=== PATIENT | male | born 1945 | race Caucasian/White ===

== ENCOUNTER → 2019-01-05 | Outpatient (CLI) | payer MEDICARE, OTHER ==
[~2019-01-05] MED LIST: ATOR1TAB21 PO; BAYE325T13 PO; FLOM0.4C39 PO; GLIP2.5T6 PO; LISI-538 PO; METF500T13 PO; METO1TAB87 PO; NO ITAB PO; PURE500C5 PO
--- NOTE | 2019-01-05 17:58 | REP ---
Clinical: Preoperative assessment . Comparison: None . Technique: PA and lateral. Findings: Cardiac silhouette is normal. Evidence of prior sternotomy. The lung james are clear and without acute consolidation, effusion, or pneumothorax. The skeletal structures are intact and normal. Impression: 1. No acute cardiopulmonary process. Electronically Signed by Bony Schwartz MD 01/05/2019 05:50 P
[2019-01-05 18:26] LABS: POTASSIUM SERUM 4.8 MEQ/L (3.5-5.1)
[2019-01-05 18:34] LABS: HEMATOCRIT 38.3 % (42.0-52.0); HEMOGLOBIN 12.8 g/dl (13.5-17.5); MEAN CORPUSCULAR HEMOGLOBIN 29.9 pg (27.0-33.0); MEAN CORPUSCULAR HGB CONC 33.4 g/dl (32.0-36.5); MEAN CORPUSCULAR VOLUME 89.5 fl (80.0-96.0); PLATELET COUNT, AUTOMATED 273 10^3/uL (150-450); RED BLOOD COUNT 4.28 10^6/uL (4.30-6.10); WHITE BLOOD COUNT 10.9 10^3/uL (4.0-10.0)
[2019-01-05 18:48] LABS: INR 0.97; PROTHROMBIN TIME 12.6 SECONDS (11.8-14.0)
[2019-01-05 18:49] LABS: PARTIAL THROMBOPLASTIN TIME 30.9 SECONDS (25.0-38.4)
--- NOTE | 2019-01-06 13:27 | ECGEPIP ---
[facility] Test Date: 2019-01-05 Pat Name: JASON THOMPSON Department: Room: - Gender: Male Wireless Sales Expert: CHRISTAL : 1945 Requested By: LUCA EARL Order Number: [id number] Reading MD: Flaca Jackson Measurements Intervals [place] Rate: 78 P: MO: 133 QRS: 25 QRSD: 89 T: 48 QT: 362 QTc: 414 Interpretive Statements SINUS RHYTHM NO PRIOR Electronically Signed on 01-06-2019 13:27:07 EDT by Flaca Jackson
== END ==
LOC: M LAB 16:41
PROVIDERS: ATTEND Orthopaedic Surgery Sports Medicine
DX: Z79.01 Long term (current) use of anticoagulants (principal); M25.869 Other specified joint disorders, unspecified knee

== ENCOUNTER 2019-01-11 09:58 | Day surgery (SDC) | payer MEDICARE, OTHER ==
[~2019-01-11] VITALS: Ht 170.2 cm; Wt 76.2 kg
[2019-01-11] MEDS ORDERED: fentaNYL 100 MCG/2 ML INJECTION (J3010) As Ordered ONE ×2 (12:45→18:47)
[2019-01-11] MEDS ORDERED: MIDAZOLAM INJ 2 MG/2 ML VIAL (J2250) As Ordered ONE (12:45)
[2019-01-11] MEDS ORDERED: LIDOCAINE 2% INJ 100 MG/5 ML SDV (FOR ANES.) As Ordered ONE (12:45)
[2019-01-11] MEDS ORDERED: PROPOFOL 200 MG/20 ML VIAL As Ordered ONE ×2 (12:45→14:56)
[2019-01-11] MEDS ORDERED: ceFAZolin 1GM INJ (J0690 PER 500MG) As Ordered ONE (13:54)
[2019-01-11] MEDS ORDERED: BUPIVACAINE HCL 0.25% 30 ML VIAL As Ordered ONE (14:27)
[2019-01-11] MEDS ORDERED: ePHEDrine SULFATE 25 MG/5 ML(5MG/ML) SYRINGE As Ordered ONE (14:48)
[2019-01-11] MEDS ORDERED: ONDANSETRON 4MG/2ML VIAL (J2405) As Ordered ONE (14:53)
[2019-01-11] MEDS ORDERED: ACETAMINOPHEN 1000MG 100ML IV BTL (OFIRMEV) (J0131 PER 10MG) As Ordered ONE (14:53)
[2019-01-11] MEDS ORDERED: PHENYLephrine HCL 500 MCG/5 ML (100MCG/ML) SYRINGE (J2370) As Ordered ONE (15:26)
[2019-01-11] MEDS ORDERED: METOCLOPRAMIDE INJ 10MG/2ML VIAL (J2765) IV PRN (16:15)
[2019-01-11] MEDS ORDERED: ONDANSETRON 4MG/2ML VIAL (J2405) IV PRN (16:15)
[2019-01-11] MEDS ORDERED: LR 1,000 ML IV SCH (16:15)
[2019-01-11] MEDS ORDERED: fentaNYL 100 MCG/2 ML INJECTION (J3010) IV PRN (16:15)
[2019-01-11] MEDS: PERCOCET 5MG/325MG TAB PO PRN ×2 (16:17→18:03)
--- NOTE | 2019-01-11 17:14 | RO ---
DATE OF PROCEDURE: 01/11/2019 PREOPERATIVE DIAGNOSIS: Right quadriceps tendon tear. POSTOPERATIVE DIAGNOSIS: Right quadriceps tendon tear. PLANNED PROCEDURE: Right quadriceps tendon repair. PROCEDURE PERFORMED: Right quadriceps tendon repair. SURGEON: Silvio Garcia MD LINING MAKER HAND: ANESTHESIA: Spinal anesthetic and a block. SPUD SORTER: Hipolito OPERATIVE PREAMBLE: This 73-year-old man sustained a right quadriceps tendon tear. He was seen and assessed in the clinic. We talked about pros, cons, risks and benefits of going ahead with a right quadriceps tendon repair. I reminded him as to the risks in preop holding and marked the right leg. No further questions. DESCRIPTION OF PROCEDURE: The patient was brought to operating theater. He was placed supine on the operating room table. Two grams of IV Ancef was administered. Preoperative time-out was performed. Preoperative block had been performed. Spinal anesthesia was induced. Preoperative time-out was performed for the patient and the site. Tourniquet was applied to the right thigh 34 inches. Right leg was prepped and draped in the usual sterile fashion. Leg was elevated, tourniquet placed at 250 mmHg for a total tourniquet time of 52 minutes. I made a longitudinal incision centered overlying the distal aspect of the quads tendon. I carried this dissection down through skin and subcutaneous tissue to meticulous hemostasis. There was an obvious 90% full-thickness quadriceps tendon rupture with some fibers remaining on the medial side. These were stretched and incompetent. I tapered down the fibers that were remaining distally, freshened up the proximal end of the bone using a 2.0 mm drill as well as rongeur and curettes to create a bleeding surface for healing. I passed a #5 nonabsorbable Ethibond suture in a running Krackow stitch fashion up and down the quadriceps tendon for a length of 2-1/2 inches and along its full length. I then drilled two 3.5 mm state pilot holes into the mid aspect of the proximal patella. I tapped these using a 4.5 mm tap. I used one SwiveLock for each suture tail and inserted these, one 4.75 mm Arthrex SwiveLock for each suture tail and inserted these into the tapped predrilled holes. These achieved a very strong bite. Then, using the suture retention stitch, I fixated some tendon over top as well as the retinaculum. I then used more #1 Vicryl to again secure the retinaculum and over-stitched some more of the distal quads tendon using the #5 Ethibond. I thoroughly irrigated the wound. Repair was stable without gapping to at least 90 degrees of flexion and repair was performed in full extension. The wound was thoroughly irrigated. Subcutaneous tissues were closed with interrupted #2-0 Vicryl sutures and the skin with bonifacio. Skin was cleaned with a wet and dry dressing. 10 mL of 0.25% Marcaine was instilled around the incision. Adaptic, 4 x 8 gauze and ABD dressings were placed and then overwrapped with a 6-inch Warren bandage. The patient was placed into his knee brace and locked in full extension. The patient was transferred off the operating table, taken to the postanesthetic care unit in stable condition. All sponge, needle, and instrument counts were correct. There were no complications. Estimated blood loss 100 mL. Plan for the patient is to be discharged home according to day surgery criteria. Limited weightbearing with crutches. Brace locked in full extension. Followup in 2 days and then in 2 weeks time to discontinue the bonifacio. Looking forward to seeing him in followup. Sincerely,
[2019-01-11] MEDS ORDERED: PERCOCET 5MG/325MG TAB As Ordered ONE (17:52)
[2019-01-11] MEDS: fentaNYL 100 MCG/2 ML INJECTION (J3010) IV PRN ×2 (18:48→19:07)
[2019-01-11] MEDS ORDERED: HYDROMORPHONE HCL 0.5 MG/ 0.5 ML SYRINGE (J1170 PER 1) IV PRN (19:15)
[2019-01-11 21:20] VITALS: BP 172/83
== END 2019-01-11 21:38 | disposition home or self-care (01) ==
LOC: M SDC 09:58
PROVIDERS: ATTEND Orthopaedic Surgery Sports Medicine
DX: S76.111A Strain of right quadriceps muscle, fascia and tendon, initial encounter (principal); I25.10 Atherosclerotic heart disease of native coronary artery without angina pectoris; I10 Essential (primary) hypertension; E78.5 Hyperlipidemia, unspecified; Z98.61 Coronary angioplasty status; E11.9 Type 2 diabetes mellitus without complications; Z85.528 Personal history of other malignant neoplasm of kidney; Z88.8 Allergy status to other drugs, medicaments and biological substances; Z79.82 Long term (current) use of aspirin; Z79.84 Long term (current) use of oral hypoglycemic drugs; Z79.899 Other long term (current) drug therapy; Y92.9 Unspecified place or not applicable; Y93.9 Activity, unspecified
CPT/HCPCS: 27385; C1713; J0131; J0690; J2250; J2370; J2405; J3010